=== PATIENT | male | born 1955 | race Caucasian/White ===

== ENCOUNTER 2017-01-12 11:13 | Inpatient (IN) | payer OTHER ==
[2017-01-12] MEDS ORDERED: NS 1,000 ML IV ONE ×2 (11:20→12:08)
[2017-01-12] MEDS ORDERED: CLINDAMYCIN 900 MG/DEXTROSE 50 ML IV ONE (11:21)
[2017-01-12] MEDS ORDERED: DEXAMETHASONE 10 MG/ML VIAL IVP ONE (11:21)
[2017-01-12 11:48] LABS: % IMMATURE GRANULYOCYTES 0.4 % (0.0-1.1); ABSOLUTE IMMATURE GRANULOCYTES 0.07 10^3/uL (0.00-0.10); ADD DIFF? NO; ADD MORPH? NO; ADD SCAN? NO; ATYPICAL LYMPHOCYTE FLAG 0 (0-99); FRAGMENT RBC FLAG 0 (0-99); LEFT SHIFT FLG 0 (0-99); LIPEMIA HEMOLYSIS FLAG 90 (0-99); MEAN CELL HEMOGLOBIN 32.3 pg (27.9-34.1); MEAN CELL HEMOGLOBIN CONCENTR. 34.8 g/dL (32.4-36.7); MEAN CELL VOLUME 92.7 fL (81.5-99.8); MEAN PLATELET VOLUME 10.9 fL (8.7-11.7); PLATELET CLUMPS FLAG 0 (0-99); PLATELET COUNT 183 10^3/uL (150-400); RED BLOOD CELL COUNT 4.96 10^6/uL (4.40-6.38); RED CELL DISTRIBUTION WIDTH 13.5 % (11.5-15.2)
[2017-01-12] MEDS ORDERED: HYDROmorphONE/DILAUDID 1 MG/ML SYR IVP ONE (11:48)
[2017-01-12] MEDS ORDERED: KETOROLAC 30 MG/1 ML SDV IVP ONE (11:48)
--- NOTE | 2017-01-12 12:16 | EDPHY ---
H & P Time Seen by Provider: 01/12/17 11:59 HPI/ROS: HPI: 61-year-old male presents to emergency department sent by ENT Dr. Luna for chief concern right dutch tonsillar swelling and in need of IV clindamycin, 12 mg IV Decadron, and 1 L normal saline. Patient's symptoms onset initially 5 days ago with right-sided sore throat and swollen glands. 2 days ago was started on doxycycline twice daily and symptoms continued to worsen so was placed on clinda p.o. today and sent over for initial IV dose.. Patient was scoped in the office 2 days ago and there was no apparent abscess. Presently, difficulty swallowing fluids due to size of right tonsil and discomfort. He is immunocompetent. Past medical history notable for back pain and appendectomy. Reports subjective fever last night. Denies dizziness, shortness of breath, chest pain, abdominal pain, nausea, vomiting. ROS:10 point review of systems is negative other than as stated in HPI Past Medical/Surgical History: Back pain, appendectomy Social History: Smoking Status: Current every day smoker Physical Exam: Vital signs stable, reviewed by me General: Awake, alert, calm, cooperative. No acute distress. Head: Normalocephalic. Atraumatic. EENT: PERRLA. EOMI. No pallor or injection. Anicteric. No nystagmus. No injection. TMs intact bilaterally with normal landmarks. Minimal rhinorrhea, mildly erythematous nasal turbinates bilaterally. Trismus present. Unable to assess oropharynx or right peritonsillar region due to this. Neck: Supple, nontender. Moderately enlarged right AC nodes.. Full range of motion. No meningismus. Respiratory: Breathing unlabored. Breath sounds equal bilaterally and clear to auscultation. No adventitious sounds. CV: Chest nontender, atraumatic. Heart rate regular. No murmur, distal pulses 2+ bilaterally. Brisk cap refill all extremities. Neuro: Alert. Oriented x 3. Speech clear. Nonfocal cranial nerves throughout. Sensation intact all extremities. Skin: Skin warm, dry, intact. No rashes, abrasions, or lacerations. Skin turgor normal. Extremities: Full range of motion in all 4 extremities. Strength 5+ all extremities. Constitutional: Initial Vital Signs Temperature (C) 36.6 C 02/16/17 11:15 Heart Rate 78 01/12/17 11:15 Respiratory Rate 16 01/12/17 11:15 Blood Pressure 144/79 H 01/12/17 11:15 O2 Sat (%) 95 01/12/17 11:15 O2 Delivery Mode Room Air Allergies/Adverse Reactions: AMOXICILLIN Allergy (Uncoded 08/28/15 09:25) Home Medications: Medication Instructions Recorded Atenolol [Tenormin 25 mg (*)] 25 mg PO DAILY 08/28/15 Fenofibrate [Lofibra] 160 mg PO DAILY 08/28/15 Doxycycline Hyclate [Vibramycin 100 mg PO BID 01/12/17 100 MG (*)] Herbals/Supplements -Info Only 1 ea PO DAILY 01/12/17 Hydrocodone/Acetaminophen [Branch 0.5 - 1 each PO BID PRN 01/12/17 7.5-325 Tablet] predniSONE 60 mg PO DAILY 01/12/17 Medical Decision Making ED Course/Re-evaluation: 1145: Received a call at 11:02 a.m. today from MACHELLE Chase for Dr. Luna. Patient being sent over for questionable right peritonsillar abscess. They requested 1 L normal saline, 900 mg clindamycin, and 12 mg IV Decadron. The indicated not to perform a CT. Patient was scoped 2 days ago in the office. His symptoms have worsened. He is afebrile and nontoxic. He is having difficulty swallowing and states he is unable to drink at this point. There was difficulty performing a oropharyngeal exam due to degree of trismus present. Patient given 2 L normal saline, 900 mg IV clindamycin, 12 mg IV Decadron, 30 mg IV Toradol, and 1 mg IV Dilaudid. We will reassess his ability to swallow after completion of fluids and determine whether or not he should be admitted. 1310: Unable to swallow fluids. Will admit him-looking for a bed presently. He is comfortable and not in need of pain medication presently. Vitals are stable. White blood cell count 37854 with 78.8% neutrophils. CO2 22. Anion gap 8. Glucose 103. Lactic acid 0.8. 1400: Consulted MACHELLE Chase for Dr. Luna. They will see the patient in the morning. Final reports CT neck pending. Patient will be transferred to floor. 1445: CT soft tissue neck shows a. Tonsillar bilateral access that crosses the midline into the retropharyngeal space, into the mediastinum, almost to the base of the skull. I have consulted Mali Jordan and she has spoken to Dr. Ortiz who will come in and perform I and D on this patient who is now on the floor under the care of Dr. Patel. Differential Diagnosis: Differential diagnosis includes but is not limited to pharyngitis, strep pharyngitis, peritonsillar abscess - Data Points Laboratory Results: Laboratory Results 01/12/17 11:38 01/12/17 11:38 01/12/17 01/12/17 01/12/17 11:38 11:38 11:33 WBC 15.93 10^3/uL H 10^3/uL (3.80-9.50) RBC 4.96 10^6/uL 10^6/uL (4.40-6.38) Hgb 16.0 g/dL g/dL (13.7-17.5) Hct 46.0 % % (40.0-51.0) MCV 92.7 fL fL (81.5-99.8) MCH 32.3 pg pg (27.9-34.1) MCHC 34.8 g/dL g/dL (32.4-36.7) RDW 13.5 % % (11.5-15.2) Plt Count 183 10^3/uL 10^3/uL (150-400) MPV 10.9 fL fL (8.7-11.7) Neut % (Auto) 78.8 % H % (39.3-74.2) Lymph % (Auto) 10.5 % L % (15.0-45.0) [place] % (Auto) 9.9 % % (4.5-13.0) Eos % (Auto) 0.1 % L % (0.6-7.6) Baso % (Auto) 0.3 % % (0.3-1.7) Nucleat RBC Rel Count 0.0 % % (0.0-0.2) Absolute Neuts (auto) 12.54 10^3/uL H 10^3/uL (1.70-6.50) Absolute Lymphs (auto) 1.68 10^3/uL 10^3/uL (1.00-3.00) Absolute Monos (auto) 1.57 10^3/uL H 10^3/uL (0.30-0.80) Absolute Eos (auto) 0.02 10^3/uL L 10^3/uL (0.03-0.40) Absolute Basos (auto) 0.05 10^3/uL 10^3/uL (0.02-0.10) Absolute Nucleated RBC 0.00 10^3/uL 10^3/uL (0-0.01) Immature Gran % 0.4 % % (0.0-1.1) Immature Gran # 0.07 10^3/uL 10^3/uL (0.00-0.10) VBG Lactic Acid 0.8 mmol/L mmol/L (0.7-2.1) Sodium 136 mEq/L mEq/L (134-144) Potassium 4.4 mEq/L mEq/L (3.5-5.2) Chloride 106 mEq/L mEq/L (97-110) Carbon Dioxide 22 mEq/l mEq/l (22-31) Anion Gap 8 mEq/L mEq/L (8-16) BUN 21 mg/dL mg/dL (7-23) Creatinine 0.8 mg/dL mg/dL (0.7-1.3) Estimated GFR > 60 Glucose 103 mg/dL H mg/dL (70-100) Calcium 10.1 mg/dL mg/dL (8.5-10.4) Medications Given: Discontinued Medications Dexamethasone (Decadron Injection) 12 mg IVP EDNOW ONE Stop: 01/12/17 11:22 Last Admin: 01/12/17 11:46 Dose: 12 mg Hydromorphone HCl (Dilaudid) 1 mg IVP EDNOW ONE Stop: 01/12/17 11:49 Last Admin: 01/12/17 12:08 Dose: 1 mg Clindamycin Phosphate/Dextrose (Cleocin 900 Mg (Premix)) 50 mls @ 100 mls/hr IV EDNOW ONE PRN Reason: Protocol Stop: 01/12/17 11:50 Last Admin: 01/12/17 11:46 Dose: 50 mls Sodium Chloride (Ns) 1,000 mls @ 0 mls/hr IV ONCE ONE PRN Reason: Wide Open Stop: 01/12/17 11:21 Last Admin: 01/12/17 11:46 Dose: 1,000 mls Sodium Chloride (Ns) 1,000 mls @ 0 mls/hr IV ONCE ONE PRN Reason: Wide Open Stop: 01/12/17 12:09 Last Admin: 01/12/17 12:09 Dose: 1,000 mls Ketorolac Tromethamine (Toradol) 30 mg IVP EDNOW ONE Stop: 01/12/17 11:49 Last Admin: 01/12/17 12:07 Dose: 30 mg Departure - Departure Disposition: [facility] Acute Clinical Impression: right peritonsillar abscess Condition: Good
[2017-01-12 12:20] LABS: ANION GAP 8 mEq/L (8-16); CALCIUM 10.1 mg/dL (8.5-10.4); CARBON DIOXIDE 22 mEq/l (22-31); CHLORIDE 106 mEq/L (97-110); CREATININE 0.8 mg/dL (0.7-1.3); GLOMERULAR FILTRATION RATE > 60; GLUCOSE 103 mg/dL (70-100); POTASSIUM 4.4 mEq/L (3.5-5.2); SODIUM 136 mEq/L (134-144)
[2017-01-12] MEDS ORDERED: IOPAMIDOL (ISOVUE-300) 100 ML BTL IV ONE (13:19)
[2017-01-12] MEDS ORDERED: ACETAMINOPHEN 325 MG TAB PO PRN (14:22)
[2017-01-12] MEDS ORDERED: ONDANSETRON 4 MG/2 ML VIAL IVP PRN (14:22)
[2017-01-12] MEDS ORDERED: ONDANSETRON DISINTEGRATING 4 MG TAB PO PRN (14:22)
[2017-01-12] MEDS ORDERED: ACETAMINOPHEN 650 MG SUPP PR PRN (14:22)
[2017-01-12] MEDS ORDERED: NICOTINE 21 MG/24 HR PATCH TD PRN (14:22)
[2017-01-12] MEDS ORDERED: KETOROLAC 15 MG/1 ML SDV IVP PRN (14:25)
[2017-01-12] MEDS ORDERED: LACTULOSE 20 GM/30 ML UDCUP PO PRN (14:28)
[2017-01-12] MEDS ORDERED: MAGNESIUM HYDROXIDE 30 ML UDCUP PO PRN (14:28)
[2017-01-12] MEDS ORDERED: POLYETHYLENE GLYCOL 3350 17 GM PKT PO PRN (14:28)
[2017-01-12] MEDS ORDERED: BISACODYL 10 MG SUPP PR PRN (14:28)
[2017-01-12] MEDS: HYDROmorphONE/DILAUDID 1 MG/ML SYR IVP PRN ×3 (14:58→23:10)
[2017-01-12] MEDS: NS 1,000 ML IV SCH (14:58)
--- NOTE | 2017-01-12 15:13 | PDGENHP ---
History and Physical - Chief Complaint Acute Odynophagia - History of Present Illness PCP: Dr. Martinez HPI: 61-year-old male presents with acute odynophagia characterized as difficulty swallowing liquids with associated sinus congestion, pain located in his right face and anterior neck. Denies any associated shortness of breath. He reports onset of symptoms was approximately 5 days ago when he noted a sore throat and anterior cervical lymphadenopathy. He was seen at the [facility] where he was prescribed doxycycline 100 mg twice daily and he has been adherent to that over the past 2 days. He reports that his symptoms have been worsening and he is only able to alleviate some of his throat discomfort by sitting upright and taking additional [place] as well as ibuprofen. The pain has been worsened with drinking solids and liquids and has rendered him unable to tolerate any oral intake. History Information - Allergies/Home Medication List Allergies/Adverse Reactions: AMOXICILLIN Allergy (Uncoded 08/28/15 09:25) Home Medications: Atenolol [Tenormin 25 mg (*)] 25 mg PO DAILY 08/28/15 [Last Taken 01/11/17] Fenofibrate [Lofibra] 160 mg PO DAILY 08/28/15 [Last Taken 01/11/17] Doxycycline Hyclate [Vibramycin 100 MG (*)] 100 mg PO BID 01/12/17 [Last Taken 01/11/17 21:00] Herbals/Supplements -Info Only 1 ea PO DAILY 01/12/17 [Last Taken Unknown] Hydrocodone/Acetaminophen [[place] 7.5-325 Tablet] 0.5 - 1 each PO BID PRN [Last Taken 01/12/17 00:00 0.5] predniSONE 60 mg PO DAILY 01/12/17 [Last Taken 01/11/17] I have personally reviewed and updated: family history, medical history, social history, surgical history - Past Medical History Additional medical history: Chronic lower back pain with continuous opiate dependency. 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 Review of Systems ROS: 10pt was reviewed & negative except for what was stated in HPI & below EENMT: Reports: other (Severe sore throat, odynophagia, dysphagia) Physical Exam Temp Pulse Resp BP Pulse Ox 36.6 C 65 16 123/81 H 94 01/12/17 14:33 01/12/17 14:33 01/12/17 14:33 01/12/17 14:33 01/12/17 14:33 Constitutional: appears nourished, uncomfortable, No not in pain Eyes: PERRL, anicteric sclera, EOMI Ears, Nose, Mouth, Throat: other (Unable to visualize tonsils secondary to limited opening of his mouth, tenderness to palpation over his right sinus, moist mucous membranes) Cardiovascular: regular rate and rhythym, no murmur, rub, or gallop, No edema Respiratory: no respiratory distress, no rales or rhonchi, clear to auscultation , other (No upper airway stridor or wheezes) Gastrointestinal: normoactive bowel sounds, soft, non-tender abdomen, no palpable masses Skin: other (Blanching ruborous cheeks without induration) Neurologic: AAOx3, sensation intact bilaterally Psychiatric: interacting appropriately, not anxious, not encephalopathic, thought process linear Lymph, Heme, Immunologic: other (Significant and tender anterior cervical lymphadenopathy with nonpalpable but tender posterior cervical lymphadenopathy, no supraclavicular lymphadenopathy) Lab Data & Imaging Review 01/12/17 11:38 01/12/17 11:38 WBC 15.93 10^3/uL (3.80-9.50) H 01/12/17 11:38 RBC 4.96 10^6/uL (4.40-6.38) 01/12/17 11:38 Hgb 16.0 g/dL (13.7-17.5) 01/12/17 11:38 Hct 46.0 % (40.0-51.0) 01/12/17 11:38 MCV 92.7 fL (81.5-99.8) 01/12/17 11:38 MCH 32.3 pg (27.9-34.1) 01/12/17 11:38 MCHC 34.8 g/dL (32.4-36.7) 01/12/17 11:38 RDW 13.5 % (11.5-15.2) 01/12/17 11:38 Plt Count 183 10^3/uL (150-400) 01/12/17 11:38 MPV 10.9 fL (8.7-11.7) 01/12/17 11:38 Neut % (Auto) 78.8 % (39.3-74.2) H 01/12/17 11:38 Lymph % (Auto) 10.5 % (15.0-45.0) L 01/12/17 11:38 [place] % (Auto) 9.9 % (4.5-13.0) 01/12/17 11:38 Eos % (Auto) 0.1 % (0.6-7.6) L 01/12/17 11:38 Baso % (Auto) 0.3 % (0.3-1.7) 01/12/17 11:38 Nucleat RBC Rel Count 0.0 % (0.0-0.2) 01/12/17 11:38 Absolute Neuts (auto) 12.54 10^3/uL (1.70-6.50) H 01/12/17 11:38 Absolute Lymphs (auto) 1.68 10^3/uL (1.00-3.00) 01/12/17 11:38 Absolute Monos (auto) 1.57 10^3/uL (0.30-0.80) H 01/12/17 11:38 Absolute Eos (auto) 0.02 10^3/uL (0.03-0.40) L 01/12/17 11:38 Absolute Basos (auto) 0.05 10^3/uL (0.02-0.10) 01/12/17 11:38 Absolute Nucleated RBC 0.00 10^3/uL (0-0.01) 01/12/17 11:38 Immature Gran % 0.4 % (0.0-1.1) 01/12/17 11:38 Immature Gran # 0.07 10^3/uL (0.00-0.10) 01/12/17 11:38 VBG Lactic Acid 0.8 mmol/L (0.7-2.1) 01/12/17 11:33 Sodium 136 mEq/L (134-144) 01/12/17 11:38 Potassium 4.4 mEq/L (3.5-5.2) 01/12/17 11:38 Chloride 106 mEq/L (97-110) 01/12/17 11:38 Carbon Dioxide 22 mEq/l (22-31) 01/12/17 11:38 Anion Gap 8 mEq/L (8-16) 01/12/17 11:38 BUN 21 mg/dL (7-23) 01/12/17 11:38 Creatinine 0.8 mg/dL (0.7-1.3) 01/12/17 11:38 Estimated GFR > 60 01/12/17 11:38 Glucose 103 mg/dL (70-100) H 01/12/17 11:38 Calcium 10.1 mg/dL (8.5-10.4) 01/12/17 11:38 Visualized and Interpreted imaging results: Yes Interpretation: CT of the neck demonstrates localized peritonsillar abscess with opacified right maxillary frontal, ethmoid sinuses Assessment & Plan Assessment: 61-year-old male presents with acute peritonsillar abscess Plan: 1. Peritonsillar abscess. Acute, new problem this provider, further workup indicated. Most likely bacterial, evidence of abscess extending past the midline on CT imaging -discussed with Maria De Jesus Isaacs, emergency department provider, she has notified me that Dr. Ortiz from ENT has been consulted and will see the patient urgently this afternoon to consider surgery -continue NPO status -continue IV pain medications, IV steroids scheduled, IV antibiotics -reviewed outside records including 01/07/2017 negative group a strep screen -send influenza PCR -send of fluid culture once abscess is drained -continue to monitor CBC 2. 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 NPO Prophylaxis. Moderate risk patient, SCDs while pharmacologic prophylaxis contraindicated prior to surgery Code. Full Disposition. Anticipated discharge is 01/13/2017, pending further workup and surgical intervention as outlined above. If patient requires extended hospitalization for ongoing IV antibiotics or any other complications, he will be upgraded to inpatient admission status.
[2017-01-12] MEDS ORDERED: HYDROCODONE/APAP 10/325 TAB PO PRN (15:27)
[2017-01-12] MEDS ORDERED: LIDO/EPI 1% **Not for Epidural 20 ML MDV ONE (15:47)
[2017-01-12] MEDS: ATENOLOL 25 MG TAB PO SCH (16:06)
[2017-01-12] MEDS ORDERED: PROPOFOL/EMULSION 500 MG/50 ML BOTTLE IV ONE (17:10)
[2017-01-12] MEDS ORDERED: REMIFENTANIL HCL 1 MG VIAL ONE (17:10)
[2017-01-12] MEDS ORDERED: fentaNYL 100 MCG/2 ML INJ ONE (17:10)
[2017-01-12] MEDS ORDERED: DEXAMETHASONE 4 MG/ML VIAL ONE (17:11)
[2017-01-12] MEDS ORDERED: ONDANSETRON 4 MG/2 ML VIAL ONE (17:11)
[2017-01-12] MEDS ORDERED: LIDOCAINE 2% 100 MG/5 ML SYR IVP ONE (17:12)
[2017-01-12] MEDS ORDERED: DEXAMETHASONE 4 MG/ML VIAL IVP SCH (18:00)
[2017-01-12] MEDS ORDERED: MEPERIDINE 25 MG/ML SYR ONE (18:45)
[2017-01-12] MEDS: D5W LR 1,000 ML IV SCH (20:09)
[2017-01-12] MEDS: CLINDAMYCIN 600 MG/DEXTROSE 50 ML IV SCH (20:10)
[2017-01-12] MEDS: SENNOSIDES/DOCUSATE SODIUM TAB PO SCH (22:12)
[2017-01-12] MEDS: DEXAMETHASONE 4 MG/ML VIAL IVP SCH (23:09)
[2017-01-13] MEDS: CLINDAMYCIN 600 MG/DEXTROSE 50 ML IV SCH ×4 (01:12→17:16)
[2017-01-13] MEDS: HYDROmorphONE/DILAUDID 1 MG/ML SYR IVP PRN ×8 (01:13→20:07)
--- NOTE | 2017-01-13 04:45 | GOP ---
[f rep st] OPERATIVE REPORT DATE OF OPERATION: 01/12/2017 SURGEON: Ta Luna MD ANESTHESIA: General endotracheal. PREOPERATIVE DIAGNOSIS: Retropharyngeal abscess/peritonsillar abscess. POSTOPERATIVE DIAGNOSIS: Retropharyngeal abscess/peritonsillar abscess. PROCEDURE PERFORMED: 1. Tonsillectomy. 2. Incision and drainage of retropharyngeal abscess. FINDINGS: Retropharyngeal abscess bilaterally, drained with incisions as above in the tonsillar fos sa through the pharynx. SPECIMENS: None. ESTIMATED BLOOD LOSS: 10 mL. DESCRIPTION OF PROCEDURE: The patient was placed in a supine position, and he was orally endotrache ally intubated. The Xenia-Barry mouth gag was placed. We began on his right tonsil and removed the right tonsil. At the base of the tongue and inferior pole of the tonsil, we encountered purulence. We placed a hemostat and suctioned into it, and it came through the right retropharynx. We opened up widely and placed the suction into the pharynx, down to 3 to 4 cm. We then removed his left ton kaveh. We did not see any pus in the peritonsillar area. I made some spreads through the pharyngeal musculature and into the retropharynx and encountered some more purulence. Initially when we were p ushing on the pharynx, we could get some purulence from his left expressing from the right side. We opened up that new opening in the left side widely with suction, and again opened it up 3 cm. The area was copiously irrigated and suctioned. We did take cultures. He tolerated the procedure well and was in good condition at the end of the procedure. CULTURES: From the right peritonsillar purulence. /[id number]/MODL
[2017-01-13] MEDS: DEXAMETHASONE 4 MG/ML VIAL IVP SCH ×3 (05:42→22:21)
[2017-01-13] MEDS: D5W LR 1,000 ML IV SCH (05:43)
[2017-01-13 05:47] LABS: % IMMATURE GRANULYOCYTES 0.9 % (0.0-1.1); ABSOLUTE IMMATURE GRANULOCYTES 0.12 10^3/uL (0.00-0.10); ADD DIFF? NO; ADD MORPH? NO; ADD SCAN? NO; ATYPICAL LYMPHOCYTE FLAG 0 (0-99); FRAGMENT RBC FLAG 0 (0-99); HEMATOCRIT 41.6 % (40.0-51.0); HEMOGLOBIN 14.1 g/dL (13.7-17.5); LEFT SHIFT FLG 20 (0-99); LIPEMIA HEMOLYSIS FLAG 90 (0-99); MEAN CELL HEMOGLOBIN 32.7 pg (27.9-34.1); MEAN CELL HEMOGLOBIN CONCENTR. 33.9 g/dL (32.4-36.7); MEAN CELL VOLUME 96.5 fL (81.5-99.8); MEAN PLATELET VOLUME 11.3 fL (8.7-11.7); PLATELET CLUMPS FLAG 0 (0-99); PLATELET COUNT 148 10^3/uL (150-400); RED BLOOD CELL COUNT 4.31 10^6/uL (4.40-6.38); RED CELL DISTRIBUTION WIDTH 13.6 % (11.5-15.2)
[2017-01-13 07:05] LABS: ANION GAP 6 mEq/L (8-16); CALCIUM 8.9 mg/dL (8.5-10.4); CARBON DIOXIDE 24 mEq/l (22-31); CHLORIDE 107 mEq/L (97-110); CREATININE 0.7 mg/dL (0.7-1.3); GLOMERULAR FILTRATION RATE > 60; GLUCOSE 173 mg/dL (70-100); POTASSIUM 5.1 mEq/L (3.5-5.2); SODIUM 137 mEq/L (134-144)
[2017-01-13] MEDS: FENOFIBRATE 145 MG TAB PO SCH (08:13)
[2017-01-13] MEDS: ATENOLOL 25 MG TAB PO SCH (08:13)
[2017-01-13] MEDS: SENNOSIDES/DOCUSATE SODIUM TAB PO SCH ×2 (08:14→21:00)
--- NOTE | 2017-01-13 08:41 | SOAPPROG ---
SOAP Progress Note Assessment/Plan: pt s/p drainage of retropharyngeal abcess/tonisllectomy yesterday. Patient still not tolerating liquids. He is on clinda and decadron. OC/OP- no bleeding, uvula very edematous. Plan:pt doing well, stable. Still cannot tolerate liquids. we will see how he does throughout the day. Once tolerating liquids he can be discharged. May be this evening or tomorrow. 01/13/17 08:35 Objective: Vital Signs Temp Pulse Resp BP Pulse Ox 36.7 C 59 L 18 123/65 H 95 01/13/17 08:00 01/13/17 08:00 01/13/17 08:00 01/13/17 08:00 01/13/17 08:00 Laboratory Results 01/13/17 05:09 01/13/17 05:09 01/12/17 01/13/17 01/14/17 05:59 05:59 05:59 Intake Total 4000 0 Output Total 315 200 Balance 3685 -200 - Pending Discharge Pending Discharge Within 48 Hours: Yes Pending Discharge Date: 01/15/17 Pending Discharge Time: 11:00 ICD10 Worksheet Patient Problems: Problems Problem Status Onset Retropharyngeal abscess Acute - ICD10 Problem Qualifiers (1) Retropharyngeal abscess
[2017-01-13] MEDS ORDERED: Herbals/Supplements -Info Only PO SCH (09:00)
[2017-01-13] MEDS: KETOROLAC 15 MG/1 ML SDV IVP PRN ×2 (15:40→22:21)
--- NOTE | 2017-01-13 17:02 | SOAPPROG ---
SOAP Progress Note Assessment/Plan: pt s/p drainage of retropharyngeal abcess/tonisllectomy yesterday. Patient still not tolerating liquids. He is on clinda and decadron. OC/OP- no bleeding, uvula very edematous. Plan:pt doing well, stable. Still cannot tolerate liquids. Hopefully by Monday he will be able to get some fluids down. As soon as he can swallow he can discharged. They understand that it is normal to not be able to eat much solids for 10 days after tonsillectomy. He has rx for clinda and decadron already. He will need pain medication, likely liquid on discharge. we spoke with Dr. Monae who is covering ENT this weekend. If he worsens he will need CT of his neck and I would be happy to see him on Monday if he is still in hospital but otherwise goal is to discharge by Monday. 01/13/17 08:35 01/13/17 16:58 Objective: Vital Signs Temp Pulse Resp BP Pulse Ox 97.7 C H 57 L 18 115/64 98 01/13/17 16:00 01/13/17 16:00 01/13/17 16:00 01/13/17 16:00 01/13/17 16:00 Microbiology 01/12/17 18:05 Gram Stain - Final Other - Eswab Laboratory Results 01/13/17 05:09 01/13/17 05:09 01/12/17 01/13/17 01/14/17 05:59 05:59 05:59 Intake Total 4000 0 Output Total 315 650 Balance 3685 -650 ICD10 Worksheet Patient Problems: Problems Problem Status Onset Retropharyngeal abscess Acute - ICD10 Problem Qualifiers (1) Retropharyngeal abscess
--- NOTE | 2017-01-13 18:42 | HOSPPROG ---
Hospitalist Progress Note Assessment/Plan: Assessment: 61-year-old male presents with acute peritonsillar abscess Plan: 1. Peritonsillar abscess. 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 Acute, RESOURCE CONSERVATIONIST eval, monitor for signs of drooling or upper airway stridor which would require emergent ENT and anesthesia evaluation 3. Constipation. Rec suppository Diet. NPO Prophylaxis. Moderate risk patient, lovenox 40 Code. Full Dispo. Upgrade to inpatient admission status, unable to tolerate any oral intake , requiring q2h IV pain Rx, clinically unresolved Subjective: Patient reports ongoing pain returning prior to doses of IV Dilaudid , unable to swallow any liquids, no bowel movement Objective: Vital Signs Temp Pulse Resp BP Pulse Ox 97.7 C H 57 L 18 115/64 98 01/13/17 16:00 01/13/17 16:00 01/13/17 16:00 01/13/17 16:00 01/13/17 16:00 01/12/17 01/13/17 01/14/17 05:59 05:59 05:59 Intake Total 1450 Balance 1450 - Physical Exam Constitutional: uncomfortable, No not in pain Eyes: PERRL, anicteric sclera, EOMI Ears, Nose, Mouth, Throat: moist mucous membranes, hearing normal, other ( Unable to visualize uvula, mild tenderness over the right sinus) Cardiovascular: regular rate and rhythym, no murmur, rub, or gallop Respiratory: no respiratory distress, no rales or rhonchi, clear to auscultation Gastrointestinal: normoactive bowel sounds, soft, non-tender abdomen, no palpable masses Neurologic: AAOx3, sensation intact bilaterally Psychiatric: interacting appropriately, not anxious, not encephalopathic, thought process linear Lymph, Heme, Immunologic: other (Tender and enlarged anterior cervical lymphadenopathy) ICD10 Worksheet Patient Problems: Problems Problem Status Onset Retropharyngeal abscess Acute
[2017-01-14] MEDS: CLINDAMYCIN 600 MG/DEXTROSE 50 ML IV SCH ×4 (00:42→17:12)
[2017-01-14] MEDS: D5W LR 1,000 ML IV SCH ×2 (00:42→11:33)
[2017-01-14] MEDS: HYDROmorphONE/DILAUDID 1 MG/ML SYR IVP PRN ×6 (00:43→20:02)
[2017-01-14] MEDS: KETOROLAC 15 MG/1 ML SDV IVP PRN ×2 (05:36→16:37)
[2017-01-14 06:00] LABS: % IMMATURE GRANULYOCYTES 0.8 % (0.0-1.1); ABSOLUTE IMMATURE GRANULOCYTES 0.13 10^3/uL (0.00-0.10); ADD DIFF? NO; ADD MORPH? NO; ADD SCAN? NO; ATYPICAL LYMPHOCYTE FLAG 0 (0-99); FRAGMENT RBC FLAG 0 (0-99); HEMATOCRIT 43.1 % (40.0-51.0); HEMOGLOBIN 14.4 g/dL (13.7-17.5); LEFT SHIFT FLG 10 (0-99); LIPEMIA HEMOLYSIS FLAG 80 (0-99); MEAN CELL HEMOGLOBIN 32.9 pg (27.9-34.1); MEAN CELL HEMOGLOBIN CONCENTR. 33.4 g/dL (32.4-36.7); MEAN CELL VOLUME 98.4 fL (81.5-99.8); MEAN PLATELET VOLUME 11.9 fL (8.7-11.7); PLATELET CLUMPS FLAG 0 (0-99); PLATELET COUNT 169 10^3/uL (150-400); RED BLOOD CELL COUNT 4.38 10^6/uL (4.40-6.38); RED CELL DISTRIBUTION WIDTH 13.5 % (11.5-15.2)
[2017-01-14 06:08] LABS: ANION GAP 6 mEq/L (8-16); CALCIUM 9.2 mg/dL (8.5-10.4); CARBON DIOXIDE 26 mEq/l (22-31); CHLORIDE 107 mEq/L (97-110); CREATININE 0.8 mg/dL (0.7-1.3); GLOMERULAR FILTRATION RATE > 60; GLUCOSE 155 mg/dL (70-100); POTASSIUM 5.1 mEq/L (3.5-5.2); SODIUM 139 mEq/L (134-144)
[2017-01-14] MEDS: DEXAMETHASONE 4 MG/ML VIAL IVP SCH (06:30)
[2017-01-14] MEDS: SENNOSIDES/DOCUSATE SODIUM TAB PO SCH ×2 (08:39→20:03)
[2017-01-14] MEDS: FENOFIBRATE 145 MG TAB PO SCH (08:39)
[2017-01-14] MEDS: ATENOLOL 25 MG TAB PO SCH (08:39)
[2017-01-14] MEDS ORDERED: morphINE 10 MG/0.5 ML UDSYR PO PRN ×3 (09:50→16:02)
[2017-01-14] MEDS ORDERED: DEXAMETHASONE 10 MG/ML VIAL IVP SCH (14:00)
--- NOTE | 2017-01-14 16:12 | HOSPPROG ---
Hospitalist Progress Note Assessment/Plan: Assessment: 61-year-old male presents with acute peritonsillar abscess Plan: 1. Peritonsillar abscess. Acute, most likely bacterial, evidence of abscess extending past the midline on CT imaging, fluid sample pending -discussed with Mali Costa, advises that patient is unsafe to medically discharge until he is able to safely swallow and pain is managed on oral pain Rx -cont on IVF, cont on IV dexamethasone -oral morphine and lidocaine added, unsuccessfully controlling pain, so IV dilaudid being used for breakthrough relief consistently this afternoon -cont on clindamycin 600mg q6 -cont to monitor CBC 2. 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 Constipation. Rec suppository Diet. Clear liq Prophylaxis. Moderate risk patient, lovenox 40 Code. Full Dispo. Upgraded to inpatient admission status, unable to tolerate oral pain Rx, requiring q2h IV pain Rx, clinically unresolved Subjective: Patient reports the oral morphine and lidocaine are unsuccessful in controlling his pain, requiring IV Dilaudid Objective: Vital Signs Temp Pulse Resp BP Pulse Ox 36.5 C 55 L 16 129/71 H 92 01/14/17 12:00 01/14/17 12:00 01/14/17 12:00 01/14/17 12:00 01/14/17 12:00 Laboratory Results 01/14/17 05:12 01/14/17 05:12 01/13/17 01/14/17 01/15/17 05:59 05:59 05:59 Intake Total 4636 Output Total 275 Balance 4361 - Physical Exam Constitutional: appears nourished, uncomfortable, No not in pain, No chronically ill appearing Ears, Nose, Mouth, Throat: moist mucous membranes, hearing normal, ears appear normal, no oral mucosal ulcers Cardiovascular: regular rate and rhythym, no murmur, rub, or gallop Respiratory: no respiratory distress, no rales or rhonchi, clear to auscultation Gastrointestinal: normoactive bowel sounds, soft, non-tender abdomen, no palpable masses Neurologic: AAOx3, sensation intact bilaterally Psychiatric: interacting appropriately, not anxious, not encephalopathic, thought process linear ICD10 Worksheet Patient Problems: Problems Problem Status Onset Retropharyngeal abscess Acute
[2017-01-14] MEDS: LIDOCAINE 2% VISCOUS 15 ML UDCUP PO PRN (16:39)
[2017-01-14] MEDS: DEXAMETHASONE IV SCH (23:03)
[2017-01-14] MEDS: NS IV SCH (23:03)
[2017-01-15] MEDS: CLINDAMYCIN 600 MG/DEXTROSE 50 ML IV SCH ×3 (00:03→12:37)
[2017-01-15] MEDS: NS 1,000 ML IV SCH (02:59)
[2017-01-15 05:46] LABS: % IMMATURE GRANULYOCYTES 0.8 % (0.0-1.1); ABSOLUTE IMMATURE GRANULOCYTES 0.13 10^3/uL (0.00-0.10); ADD DIFF? NO; ADD MORPH? NO; ADD SCAN? NO; ATYPICAL LYMPHOCYTE FLAG 0 (0-99); FRAGMENT RBC FLAG 10 (0-99); HEMATOCRIT 43.4 % (40.0-51.0); HEMOGLOBIN 14.8 g/dL (13.7-17.5); LEFT SHIFT FLG 20 (0-99); LIPEMIA HEMOLYSIS FLAG 90 (0-99); MEAN CELL HEMOGLOBIN CONCENTR. 34.1 g/dL (32.4-36.7); MEAN CELL VOLUME 93.9 fL (81.5-99.8); MEAN PLATELET VOLUME 11.6 fL (8.7-11.7); PLATELET CLUMPS FLAG 10 (0-99); PLATELET COUNT 190 10^3/uL (150-400); RED BLOOD CELL COUNT 4.62 10^6/uL (4.40-6.38); RED CELL DISTRIBUTION WIDTH 13.3 % (11.5-15.2)
[2017-01-15 05:54] LABS: ANION GAP 5 mEq/L (8-16); CALCIUM 9.1 mg/dL (8.5-10.4); CARBON DIOXIDE 24 mEq/l (22-31); CHLORIDE 107 mEq/L (97-110); CREATININE 0.7 mg/dL (0.7-1.3); GLOMERULAR FILTRATION RATE > 60; GLUCOSE 136 mg/dL (70-100); SODIUM 136 mEq/L (134-144)
[2017-01-15] MEDS: NS IV SCH ×2 (06:51→14:16)
[2017-01-15] MEDS: DEXAMETHASONE IV SCH ×2 (06:51→14:16)
[2017-01-15] MEDS: LIDOCAINE 2% VISCOUS 15 ML UDCUP PO PRN (08:03)
[2017-01-15] MEDS: SENNOSIDES/DOCUSATE SODIUM TAB PO SCH (08:37)
[2017-01-15] MEDS: ATENOLOL 25 MG TAB PO SCH (08:38)
[2017-01-15] MEDS: FENOFIBRATE 145 MG TAB PO SCH (08:38)
[2017-01-15] MEDS ORDERED: MAGNESIUM CITRATE 300 ML BOTTLE PO ONE (10:35)
[2017-01-15 11:55] VITALS: BP 131/77; PULSE 51; RESP 16; TEMP 97.7; O2SAT 92
[2017-01-15] MEDS ORDERED: ONDANSETRON DISINTEGRATING 4 MG TAB PO PRN (12:21)
--- NOTE | 2017-01-15 15:11 | PDDCSUM ---
Discharge Summary Discharge Summary: DISCHARGE SUMMARY FOLLOW-UP ITEMS: 1. Follow-up abscess culture 2. Determine whether to continue steroids and antibiotics after clinic appointment DATE OF ADMISSION: 01/12/2017 DATE OF DISCHARGE: 01/15/2017 DISCHARGE DIAGNOSES: 1. Acute peritonsillar abscess 2. Acute odynophagia 3. Constipation CONSULTATIONS: ENT by Dr. Dobbins PROCEDURES / IMAGING: Tonsillar abscess drainage and tonsillectomy CHIEF COMPLAINT: Acute throat pain SUBJECTIVE: Patient continues to experience some throat pain and painful swallowing but his symptoms are alleviated by pain medications and he is able to swallow liquids PHYSICAL EXAM ON DISCHARGE: Systolic blood pressure is 110, heart rate 60, afebrile overnight, satting well on room air, tenderness and fullness in his anterior cervical lymph chain but improved from days prior, no tenderness to palpation over the right sinus LABS ON DISCHARGE: White blood cell count 18254, hemoglobin 14.8, creatinine 0.7, potassium 5 HOSPITAL COURSE BY PROBLEM: 1. Acute peritonsillar abscess. Most likely bacterial, Gram stain demonstrating oropharyngeal heidy including Gram-negative rods, Gram-positive cocci, Gram-positive rods. That being said, the most likely etiology is either strep versus Fusobacterium. Patient was initiated on IV clindamycin and this will be transitioned to high-dose clindamycin for the next 6 days and reassessment in the outpatient setting to determine whether to continue. The patient also received high-dose IV steroids and this has been transitioned to oral prednisone which will be continued for the next 6 days and reassessed in the ENT clinic. His persistent leukocytosis is most likely secondary to stress demargination from steroids. 2. Acute abdomen aphasia. Patient is able to tolerate a clear liquid diet, he is utilizing oral Roxanol and lidocaine for symptomatic relief successfully without requiring IV breakthrough pain medication on the day of discharge. 3. Constipation. Patient received aggressive bowel regimen prior to discharge and has moved his bowels successfully. DISCHARGE MEDICATIONS: Please see official discharge medication reconciliation sheet in chart , clindamycin 450 mg q.8 hours x6 subsequent days, prednisone 60 mg daily x6 subsequent days, Roxanol as needed q.2 hours 5-10 mg, viscous lidocaine as needed, Zofran as needed, Senokot S twice daily. DISCHARGE INSTRUCTIONS: Follow up at Dr. Luna's office within the next several days. TIME SPENT: Greater than 30 minutes were spent on direct patient care, as well as discharge planning and preparation.
== END 2017-01-15 15:40 | disposition home or self-care (01) | DRG 133 ==
LOC: F3E 14:32 → OBSVTOIN 01-13 15:30
PROVIDERS: ADMIT Otolaryngology; ATTEND Internal Medicine
PROC: 0CTPXZZ Resection of Tonsils, External Approach (ICD-10-PCS; principal; 2017-01-12 17:00)
PROC: 0C9 Mouth and Throat, Drainage (ICD-10-PCS; principal; 2017-01-12 17:00)
DX: J36 Peritonsillar abscess (principal); R13.10 Dysphagia, unspecified; F11.20 Opioid dependence, uncomplicated; M54.9 Dorsalgia, unspecified; K59.00 Constipation, unspecified
CPT/HCPCS: 92526-GN; 92610-GN; 96374; G0378; J1100; J1170; J1885; J2001; J2405; J2704; J3010; Q9967

== ENCOUNTER → 2017-01-27 | Outpatient (CLI) | payer OTHER | LOC: BMCIMAGING 12:29 | PROVIDERS: ATTEND Physician Assistant Medical | DX: R53.83 Other fatigue (principal) ==

== ENCOUNTER → 2018-09-07 | Outpatient (CLI) | payer OTHER ==
[~2018-09-07] MED LIST: GADOBUTROL 10 ML VIAL IVP ONE; IOPAMIDOL (ISOVUE 370) 100 ML BTL IV ONE; LIDOCAINE 1% 300 MG/30 ML SDV ONE
== END ==
LOC: FIMAGING 10:28
PROC: 3E0U3KZ Introduction of Other Diagnostic Substance into Joints, Percutaneous Approach (ICD-10-PCS; principal; 2018-09-07)
DX: S73.191A Other sprain of right hip, initial encounter (principal); M24.851 Other specific joint derangements of right hip, not elsewhere classified; M76.01 Gluteal tendinitis, right hip
CPT/HCPCS: A9585; Q9967